=== PATIENT | female | born 1945 | race Hispanic/Latino ===

== ENCOUNTER 2017-10-23 13:22 | Inpatient (IN) | payer MEDICARE ==
[~2017-10-23] VITALS: Ht 157.5 cm; Wt 56.8 kg
[~2017-10-23 13:22] MED LIST: ARICEPT5 MG PO; ASPIR 8181 MG PO; ATORVASTATIN CA20 MG PO; BENZONATATE100 MG PO; CETIRIZINE HCL10 MG PO; CYMBALTA20 MG PO; ENALAPRIL MALEA20 MG PO; ESCITALOPRAM OX10 MG PO; FLOMAX0.4 MG PO; FLUTICASONE PRO16 GM; HALOPERIDOL1 MG PO; LEVEMIR100 UNIT/1 SQ; LEVOTHYROXINE75 MCG PO; METFORMIN HCL1000 MG PO; MULTI-VITAMIN1 EACH PO; NAMENDA10 MG PO; OXYBUTYNIN CHLOR5 M1 PO; SIMVASTATIN20 MG PO; VASOTEC10 MG PO; VIRTUSSIN AC PO
[2017-10-23] MEDS ORDERED: ONDANSETRON HCL INJ 2 MG/ML VIAL IV STA (13:33)
[2017-10-23] MEDS ORDERED: MORPHINE SULFATE 4 MG/ML SYR IV ONE (13:45)
[2017-10-23] MEDS ORDERED: NAPROXEN250 MG PO (14:11)
[2017-10-23] MEDS ORDERED: BACLOFEN10 MG PO (14:12)
[2017-10-23] MEDS ORDERED: CEFTRIAXONE SOD 1 GM VIAL IM ONE (15:45)
[2017-10-23] MEDS ORDERED: ENOXAPARIN SOD INJ 40 MG/0.4 ML SYR SC STA (15:57)
[2017-10-23] MEDS ORDERED: MORPHINE SULFATE 4 MG/ML SYR IV PRN (16:00)
[2017-10-23] MEDS ORDERED: SODIUM CHLORIDE FLUSH 10 ML SYR INJ PRN (16:00)
[2017-10-23] MEDS ORDERED: DEXTROSE 50% SYRINGE 50 ML IV PRN (16:00)
[2017-10-23] MEDS ORDERED: ONDANSETRON HCL INJ 2 MG/ML VIAL IV PRN (16:00)
[2017-10-23] MEDS: INSULIN REGULAR, HUMAN 100 UNIT/1 ML 3ML VIAL SQ SCH ×2 (16:30→21:00)
[2017-10-23 19:24] VITALS: BP 148/78
[2017-10-23 19:42] VITALS: BP 148/78
[2017-10-23 20:52] VITALS: BP 134/63
[2017-10-24 01:26] VITALS: BP 178/79
[2017-10-24 06:00] VITALS: BP 175/66
[2017-10-24] MEDS: INSULIN REGULAR, HUMAN 100 UNIT/1 ML 3ML VIAL SQ SCH ×2 (07:30→11:30)
[2017-10-24 07:53] VITALS: BP 175/66
[2017-10-24 10:52] VITALS: BP 173/74
[2017-10-24] MEDS ORDERED: NIFEDIPINE CR 30 MG TAB PO ONE (12:15)
[2017-10-24] MEDS ORDERED: PROCARDIA XL30 MG PO (12:29)
[2017-10-24] MEDS ORDERED: LEVAQUIN500 MG PO (12:29)
[2017-10-24] MEDS ORDERED: FLAGYL250 MG PO (12:30)
[2017-10-24] MEDS ORDERED: ZOFRAN ODT4 MG SL (12:30)
--- NOTE | 2017-10-24 16:30 | Discharge Summary ---
FINAL DIAGNOSES 1. Urinary tract infection. 2. Mesenteric colitis. A 72-year-old advanced dementia and demented female came in with complaint of some vague abdominal pain. Blood pressure also elevated as well, but per family she was taken off her blood pressure medication approximately 6 months ago, and since then she was doing well. Blood pressure in the 130-140 systolic. When she was having problem with pain, she has increasing blood pressure. The patient remained afebrile. She is comfortable at this time. She ate all her breakfast and lunch. The patient does not have any complaint of abdominal pain. She did receive 1 dose of Rocephin in the emergency room. Patient is stable at this time. Discussed with the patient and family who she lives with, and stating that she is doing well. Requested to be discharged and I absolutely agree. The patient will go home with Levaquin 500 mg daily for 5 days and Flagyl 500 mg 3 times a day for 5 days. Along with that, she will take Zofran as needed for nausea and vomiting. Patient is stable and discharged home today. Follow up with her family doctor within a week. Job#: [id number] [email or web address]
== END 2017-10-24 12:52 | disposition home or self-care (01) | DRG 394 ==
LOC: FSED 13:22 → ERHOLD 15:54 → MED/SURG2 18:37
PROVIDERS: ADMIT Internal Medicine; ATTEND Internal Medicine
DX: K65.4 Sclerosing mesenteritis (principal); N39.0 Urinary tract infection, site not specified; K52.9 Noninfective gastroenteritis and colitis, unspecified; G30.9 Alzheimer's disease, unspecified; F02.80 Dementia in other diseases classified elsewhere, unspecified severity, without behavioral disturbance, psychotic disturbance, mood disturbance, and anxiety; E78.5 Hyperlipidemia, unspecified; I10 Essential (primary) hypertension; E11.9 Type 2 diabetes mellitus without complications; F41.9 Anxiety disorder, unspecified; I16.0 Hypertensive urgency
CPT/HCPCS: 36415; 70450; 80053; 81003; 82948; 84484; 85025; 87040; 93005; 99284; J0696; J1650; J2270; J2405

== ENCOUNTER 2020-11-18 10:35 | Emergency (ER) | payer MEDICARE, OTHER ==
[~2020-11-18] VITALS: Ht 157.5 cm; Wt 56.7 kg
[~2020-11-18 10:35] MED LIST changes: +BACLOFEN10 MG PO; +FLAGYL250 MG PO; +LEVAQUIN500 MG PO; +NAPROXEN250 MG PO; +PROCARDIA XL30 MG PO; +ZOFRAN ODT4 MG SL
== END 2020-11-18 14:07 | disposition home or self-care (01) ==
LOC: ER 10:55
DX: S00.83XA Contusion of other part of head, initial encounter (principal); M25.551 Pain in right hip; W01.198A Fall on same level from slipping, tripping and stumbling with subsequent striking against other object, initial encounter; Y92.008 Other place in unspecified non-institutional (private) residence as the place of occurrence of the external cause; F03.90 Unspecified dementia, unspecified severity, without behavioral disturbance, psychotic disturbance, mood disturbance, and anxiety; E11.9 Type 2 diabetes mellitus without complications; E03.9 Hypothyroidism, unspecified; I25.10 Atherosclerotic heart disease of native coronary artery without angina pectoris; E78.5 Hyperlipidemia, unspecified; K21.9 Gastro-esophageal reflux disease without esophagitis; F41.9 Anxiety disorder, unspecified
CPT/HCPCS: 70450; 72125; 99284